=== PATIENT | female | born 1950 | race Caucasian/White ===

== ENCOUNTER → 2021-10-07 | Outpatient (CLI) | payer OTHER ==
--- NOTE | 2021-10-08 09:16 | BD ---
EXAMINATION TYPE: Axial Bone Density DATE OF EXAM: 10/07/2021 COMPARISON: NONE CLINICAL HISTORY: 71 years year old Female. ICD-10 CODE: M899 DISORDER OF BONE Height: 5 FT 2 IN Weight: 165 FRAX RISK QUESTIONS: Alcohol (3 or more units per day): NO Family History (Parent hip fracture): YES Glucocorticoids (More than 3mos): NO (Ex: prednisone, prednisolone, methylprednisolone, dexamethasone, and hydrocortisone). History of Fracture in Adulthood: NO Secondary Osteoporosis: 1. Type 1 Diabetes: NO 2. Hyperthyroidism: NO 3. Menopause before 45: NO 4. Malnutrition: NO 5. Chronic liver disease: NO Rheumatoid Arthritis: NO Current Tobacco Use: NO RISK FACTORS HISTORY OF: Surgery to Spine/Hip(right/left)/Wrist (right/left): NO Family History of Osteoporosis: YES Active: YES Diet low in dairy products/other sources of calcium: NO Postmenopausal woman: YES Take estrogen and/or progesterone medications: NO Lost more than 2 inches in height since high school: NO Frequent falls: NO Poor Health: GOOD Hyperparathyroidism: NO Adrenal Insufficiency: NO MEDICATIONS: Additional Medications: ZOLOFT, BUSPIRONE Additional History: EXAM MEASUREMENTS: Bone mineral densitometry was performed using the [employer] System. Bone mineral density as measured about the Lumbar spine is: ----- L1-L4(G/cm2): 0.955 T Score Values are as follows: ----- L1: -2.4 ----- L2: -2.5 ----- L3: -1.4 ----- L4: -1.6 ----- L1-L4: -1.9 Bone mineral density has: DECREASED -14.7 % since study of: 2001 Bone mineral density about the R hip (g/cm2): 0.820 Bone mineral density about the L hip (g/cm2): 0.809 T Score values are as follows: -----R Neck: -1.6 -----L Neck: -1.6 -----R Total: -1.8 -----L Total: -1.4 Bone mineral density has: DECREASED -15.4 % since study of: 2001 FRAX%s: The graph provided illustrates a 16.0 % chance for a major osteoporotic fx and a 3.4 % chance for the hips probability for fx in 10 years time. IMPRESSION: Osteopenia (T Score between -2.5 and -1). There is slightly increased risk of fracture and the patient may be considered for treatment. Re-Screen 2-5 years. NOTE: T-SCORE=SD OF THE YOUNG ADULT MEAN.
--- NOTE | 2021-10-11 21:58 | MM ---
Reason for Exam: Screening (asymptomatic). Last mammogram was performed 6 year(s) and 8 month(s) ago. Patient History: Menarche at age 15. First Full-Term at age 26. Postmenopausal. Patient used Hormonal Contraceptives for 14 years. Risk Values: Fabi 5 year model risk: 1.7%. NCI Lifetime model risk: 5.1%. Prior Study Comparison: 08/26/2010 Bilateral Screening Mammogram, [facility]. 03/21/2012 Bilateral Screening Mammogram, [facility]. 01/22/2015 Bilateral Screening Mammogram, [facility]. Tissue Density: There are scattered fibroglandular densities. Findings: Analyzed By CAD. There is a small 4 mm area of nodularity medial anterior right breast suspected to have been present partially obscured previously. Six-month follow-up recommended. On the left side, there is some irregular area of asymmetric density which appears more defined but shows no correlate on the CC view. We note that the nipple is out of profile on the patient's comparison left MLO view superimposition shadow is suggested. Six-month follow-up recommended. Otherwise, no significant change. Overall Assessment: Probably benign, BI-RAD 3 Management: Diagnostic Mammogram of both breasts in 6 months. 1. Six-month follow-up diagnostic right breast mammogram for the 5 mm medial nodularity suspected to have been partially obscured on the comparison exam. A benign etiology is suspected. 2. Six-month follow-up diagnostic left breast mammogram for the subareolar asymmetric density on the MLO view. No correlate on the CC view. The nipple is out of profile on the patient's comparison MLO view. Superimposition shadow is suspected. 3. Otherwise, patient should continue monthly self breast exams. Electronically signed and approved by: Briana Chavez M.D. Radiologist
== END | disposition home or self-care (01) ==
LOC: RADMAMWWP 15:05
PROVIDERS: ATTEND Family Medicine
DX: Z12.31 Encounter for screening mammogram for malignant neoplasm of breast (principal); M81.0 Age-related osteoporosis without current pathological fracture; M85.89 Other specified disorders of bone density and structure, multiple sites; Z78.0 Asymptomatic menopausal state
CPT/HCPCS: 77067; 77080

== ENCOUNTER 2022-02-17 08:52 | Day surgery (SDC) | payer OTHER ==
[2022-02-12 14:49] VITALS: BMI 29.0
[~2022-02-17 08:52] MED LIST: LACTATED RINGERS 1,000 ML IV SCH; LIDOCAINE 1% (10MG/ML) FOR IV START INTRADERMA PRN; ONDANSETRON 4 MG/2 ML VIAL IVP PRN
[2022-02-17 09:36] VITALS: RESP 18; TEMP 97.8
[2022-02-17] MEDS ORDERED: PROPOFOL 10 MG/ML 20 ML VIAL IV ONE (10:32)
--- NOTE | 2022-02-17 10:45 | P.PCN ---
Date of Procedure: 02/17/22 Procedure(s) Performed: BRIEF HISTORY: Patient is a 71-year-old, pleasant, white female as a part of evaluation of GERD and intermittent dysphagia to solids. She also has gastroesophageal reflux symptoms and he started on a Protonix 40 mg daily and symptoms and her symptoms are much improved.. PROCEDURE PERFORMED: Esophagogastroduodenoscopy with biopsy. PREOPERATIVE DIAGNOSIS: GERD symptoms and intermittent dysphagia to solids. IV sedation per anesthesia. PROCEDURE: After informed consent was obtained, the patient was brought into the endoscopy unit. IV sedation was administered by Anesthesia under continuous monitoring. Initially the Olympus GIF-140 video endoscope was inserted into the mouth. Esophagus intubated without any difficulty. It was gradually advanced into the stomach and duodenum and carefully examined. The bulb and the second part of the duodenum appeared normal. The scope at this time was withdrawn to the stomach, adequately insufflated with air, and upon careful examination, mucosa of the antrum, had mild gastritis and biopsies were done from this area. The body, cardia and the fundus appeared normal. The scope was then withdrawn into the esophagus. Small to moderate size hiatal hernia noted. The GE junction was located at 36 cm from the incisors. It was a distal esophageal Schatzki's ring identified and the patient's dysphagia has improved dilation was not performed. Biopsies were done from the distal esophagus. The rest of the esophagus appeared normal. There were no erosions or ulcerations seen and the patient tolerated the procedure well. IMPRESSION: 1. Small to moderate size hiatal hernia. 2. Widely patent distal esophageal Schatzki's ring 3. Mild antral gastritis. RECOMMENDATIONS: The findings of this examination were discussed with the patient as well as a family. Follow-up with the biopsy results She was advised to continue with Protonix 40 mg daily and follow antireflux measures..
[2022-02-17 11:14] VITALS: BP 122/79; PULSE 65
== END 2022-02-17 11:25 | disposition home or self-care (01) ==
LOC: ORWHC2ENDO 08:52
PROVIDERS: ATTEND Internal Medicine Gastroenterology
DX: R13.19 Other dysphagia (principal); K29.50 Unspecified chronic gastritis without bleeding; K44.9 Diaphragmatic hernia without obstruction or gangrene; K22.2 Esophageal obstruction; K21.00 Gastro-esophageal reflux disease with esophagitis, without bleeding; Z79.899 Other long term (current) drug therapy
CPT/HCPCS: 88305; 43239; J2704

== ENCOUNTER → 2023-04-19 | Outpatient (CLI) | payer OTHER ==
--- NOTE | 2023-04-20 15:59 | MM ---
Reason for Exam: Screening (asymptomatic). Last mammogram was performed 1 year(s) and 7 month(s) ago. Patient History: Menarche at age 15. First Full-Term at age 26. Postmenopausal. Patient used Hormonal Contraceptives for 14 years. Risk Values: Fabi 5 year model risk: 1.8%. NCI Lifetime model risk: 4.9%. Prior Study Comparison: 03/21/2012 Bilateral Screening Mammogram, [facility]. 01/22/2015 Bilateral Screening Mammogram, [facility]. 10/07/2021 Bilateral MG screening mammo w CAD, [facility]. Tissue Density: The breast tissue is heterogeneously dense. This may lower the sensitivity of mammography. Findings: Analyzed By CAD. Some increased densities in the subareolar breasts bilaterally. The pattern appears stable. No significant interval changes are evident. No suspicious groups of microcalcifications, spiculated or lobular masses, architectural distortion or other secondary signs of malignancy are mammographically apparent. Overall Assessment: Benign, BI-RAD 2 Management: Screening Mammogram of both breasts in 1 year. A negative mammogram report should not preclude additional follow up of suspicious palpable abnormalities. Patient should continue monthly self breast exam. A clinical breast exam by your physician is recommended on an annual basis and results should be correlated with mammographic findings. Electronically signed and approved by: Stephen Powell D.O. Radiologis
== END | disposition home or self-care (01) ==
LOC: RADMAMWWP 10:49
PROVIDERS: ATTEND Family Medicine
DX: Z12.31 Encounter for screening mammogram for malignant neoplasm of breast (principal); Z78.0 Asymptomatic menopausal state
CPT/HCPCS: 77067